=== PATIENT | female | born 1940 | race Caucasian/White ===

== ENCOUNTER 2016-10-21 09:13 | Day surgery (SDC) | payer MEDICARE ==
[~2016-10-21] VITALS: Ht 170.2 cm; Wt 94.0 kg
[~2016-10-21 09:13] MED LIST: ASPI81TA40 PO; CELE200C PO; CHOL100045 PO; DILT180C83 PO; FOLI0.4T2 PO; LEVO100T45 PO; MAGN27TA2 PO; MULT-1018 PO; OXYB15TA PO; OXYB5TAB PO; Sodium Chloride LOK Flush 10 mL Syringe IV PRN; VITA100T4 PO; fentaNYL-PF 50 mCg/mL 2 mL Inj IVPUSH PRN
[2016-10-21 09:33] VITALS: BP 149/81; PULSE 76; RESP 14; O2SAT 98
[2016-10-21] MEDS ORDERED: HYDR25TA4 PO (09:35)
[2016-10-21] MEDS: 0.9% Sodium Chloride 1,000 ML IV SCH ×2 (10:01→10:34)
[2016-10-21 10:39] VITALS: BP 124/69; PULSE 58; RESP 16; O2SAT 96
[2016-10-21 10:50] VITALS: BP 134/70; PULSE 60; RESP 16; O2SAT 91
--- NOTE | 2016-10-21 10:57 | ENDO ---
[address] [address] ENDOSCOPY PROCEDURE PATIENT: DORINDA HUNG : 1940 MR#: [id number] ADMIT: 10/21/2016 JOB ID: [id number] TYPE OF OPERATION: Colonoscopy with biopsy. PREOPERATIVE DIAGNOSIS: fecal incontinence POSTOPERATIVE DIAGNOSES: 1. Tortuous sigmoid colon. 2. Moderate sigmoid diverticulosis. ANESTHESIA: Fentanyl 125 mcg and Versed 6 mg IV administered. COMPLICATION: None. BLOOD LOSS: Minimal. DESCRIPTION OF PROCEDURE: After risks and benefits were explained to the patient, informed consent was obtained. After anesthesia administered, colonoscope was then inserted from the rectum to cecum. Mucosa carefully examined. Prep of the patient was excellent. After procedure was done, the scope was withdrawn and procedure terminated. FINDINGS: Upon inspection of the anus, no masses, hemorrhoids, ulcers, or fissures that are seen. Throughout the entire examination, there was moderate sigmoid diverticulosis. Colon in the sigmoid is very torturous. Random biopsies taken at terminal ileum and random colon. IMPRESSION: 1. Moderate sigmoid diverticulosis. 2. Tortuous sigmoid colon. RECOMMENDATION: Await pathology results. High-fiber diet. Follow up in GI clinic as needed. EFREM
[2016-10-21 10:59] VITALS: BP 118/60; PULSE 59; RESP 16; O2SAT 95
--- NOTE | 2016-10-22 13:33 | PATH ---
SURGICAL PATHOLOGY Attending Physician:Ajay Davidson MD CASE STATUS: Signed Out PATIENT NAME: DORINDA HUNG PID: [id number] : 1940 DATE COLLECTED:10/21/2016 18:29 SPECIMEN: 1: Ileum, Biopsy 2: Colon, Biopsy CLINICAL HISTORY: 1). TERMINAL ILEUM BIOPSY 2). RANDOM COLON BIOPSY FINAL DIAGNOSIS: 1.TERMINAL ILEUM BIOPSY: NORMAL TERMINAL ILEUM MUCOSA. No inflammation identified. Negative for dysplasia and malignancy. 2.RANDOM COLON BIOPSY: COLONIC MUCOSA WITH NO DIAGNOSTIC ALTERATIONS. Negative for inflammation, dysplasia and malignancy. ICD10 CODE R10.9 GROSS DESCRIPTION: The specimen is received in two formalin filled containers labeled with the patient's name. 1). The specimen is sublabeled "terminal ileum" and consists of 2 portions of tissue which aggregate to 0.3 x 0.3 x 0.2 CM. The specimen is entirely submitted in cassette 1A. 2). The specimen is sublabeled "random colon" and consists of 4 portions of tissue which aggregate to 3.5 x 0.5 x 0.2 CM. The specimen is entirely submitted in cassette 2A. 10/21/2016 [facility] MICRO DESCRIPTION: See diagnosis. ICD-9 CODES: CPT CODES: 1: 59972 2: 78183 Electronically Signed Out Michaela Stanley MD [facility] Pathology [facility], [place] [address] Technical component performed at [facility], [address] [place] [address] Ave[address], [place], [address]
== END 2016-10-21 23:59 | disposition home or self-care (01) ==
LOC: END 09:13
PROVIDERS: ATTEND Internal Medicine Gastroenterology
DX: R15.9 Full incontinence of feces (principal); K57.30 Diverticulosis of large intestine without perforation or abscess without bleeding; R19.7 Diarrhea, unspecified; M79.7 Fibromyalgia; I10 Essential (primary) hypertension
CPT/HCPCS: 45380; 88305; 99153; G0500; J7030